=== PATIENT | male | born 1990 ===

== ENCOUNTER 2023-09-07 01:03 | Outpatient (CLI) | payer OTHER | END 2023-09-07 01:04 | disposition critical access hospital (66) | LOC: EMS 01:03 | DX: R06.00 Dyspnea, unspecified (principal); R46.89 Other symptoms and signs involving appearance and behavior; R45.1 Restlessness and agitation; Z78.1 Physical restraint status | CPT/HCPCS: A0425; A0427 ==

== ENCOUNTER 2023-09-07 01:28 | Emergency (ER) | payer OTHER ==
[2023-09-07] MEDS ORDERED: SODIUM CHLORIDE 0.9% 1,000 ML IV STA (01:34)
[2023-09-07 01:48] LABS: BASOPHILS % (AUTO) 0.3 %; EOSINOPHILS % (AUTO) 0.1 %; HCT - HEMATOCRIT 42.7 % (42.0-52.0); HGB - HEMOGLOBIN 14.6 g/dL (14.0-18.0); LYMPHOCYTES # (AUTO) 0.9 10^3/uL (1.5-3.5); LYMPHOCYTES % (AUTO) 8.5 %; MEAN CORPUSCULAR HEMOGLOBIN 31.5 pg (27.0-31.0); MEAN CORPUSCULAR HGB CONC 34.2 g/dL (32.0-36.0); MEAN CORPUSCULAR VOLUME 92.2 fL (80.0-94.0); MEAN PLATELET VOLUME 9.4 fL (7.4-11.4); MONOCYTES # (AUTO) 0.5 10^3/uL (0.0-1.0); MONOCYTES % (AUTO) 4.8 %; NEUTROPHILS # (AUTO) 9.1 10^3/uL (1.5-6.6); PLT - PLATELET COUNT 450 10^3/uL (130-450); RED BLOOD COUNT 4.63 10^6/uL (4.70-6.10); RED CELL DISTRIBUTION WIDTH 12.2 % (12.0-15.0); WHITE BLOOD COUNT 10.6 x10^3/uL (4.8-10.8)
[2023-09-07 02:27] LABS: ALBUMIN 4.7 g/dL (3.2-5.5); ALBUMIN/GLOBULIN RATIO 2.1 (1.0-2.2); ALKALINE PHOSPHATASE 57 IU/L (42-121); ALT ALANINE AMINOTRANSFERASE 16 IU/L (10-60); AST ASPARTATE AMINOTRANSFERASE 18 IU/L (10-42); BILIRUBIN,TOTAL 0.8 mg/dL (0.2-1.0); BUN - BLOOD UREA NITROGEN 12 mg/dL (6-20); CALCIUM 9.6 mg/dL (8.5-10.3); CARBON DIOXIDE - CO2 22 mmol/L (21-32); CHLORIDE 101 mmol/L (101-111); CK- CREATINE KINASE 181 IU/L (30-223); ETOH - ETHANOL < 10.0 mg/dL; GFR - MDRD 86 (>89); GLUCOSE 178 mg/dL (74-104); LIPASE 23 U/L (11-82); MAGNESIUM 1.9 mg/dL (1.7-2.3); POTASSIUM 3.3 mmol/L (3.5-4.5); SODIUM 136 mmol/L (135-145); TOTAL PROTEIN 6.9 g/dL (6.4-8.9)
[2023-09-07 02:49] LABS: ACETAMINOPHEN < 0 ug/mL (10-30); SALICYLATE < 1.5 mg/dL
--- NOTE | 2023-09-07 03:34 | ED Physician Documentation ---
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 He was reportedly found running in the hallway by staff. Patient was quite combative and required 5 mg of Versed and four-point restraints by EMS in order for transport. EMS reported that staff at [facility] stated that the patient has access to medications but they are unsure of what they he could have taken. There was one report of possibly taking ketamine. Patient is able to answer his name but not able to answer any other questions. Review of Systems Unable to obtain: AMS PD PAST MEDICAL HISTORY - Present Medications Home Medications: Ambulatory Orders Medication Instructions Recorded Confirmed No Known Home Medications 09/07/23 09/07/23 - Allergies Allergies/Adverse Reactions: Allergies Allergy/AdvReac Type Severity Reaction Status Date / Time Unable to Assess Allergy Verified 09/07/23 01:41 - Social History Does the pt smoke?: No Smoking Status: Never smoker PD ED PE NORMAL - General General: No acute distress, Well developed/nourished. No: Alert and oriented X 3 (Alert and oriented to person) - HEENT HEENT: Atraumatic, PERRL, EOMI, Moist mucous membranes, Pharynx benign - Neck Neck: Supple, no meningeal sign - Cardiac Cardiac: RRR, Strong equal pulses, Other (Tachycardic, regular rhythm) - Respiratory Respiratory: No respiratory distress, Clear bilaterally - Abdomen Abdomen: Soft, Non tender - Derm Derm: Warm and dry - Extremities Extremities: No deformity - Neuro Neuro: No motor deficit, Normal speech. No: Alert and oriented X 3 (Alert and oriented x1) Results - Vitals Vitals: Vital Signs - 24 hr 09/07/23 09/07/23 09/07/23 01:38 02:58 03:00 Temperature 36.9 C Heart Rate 126 H 95 97 Respiratory 14 16 16 Rate Blood Pressure 120/77 124/79 123/78 O2 Saturation 92 99 98 09/07/23 09/07/23 09/07/23 03:30 04:00 04:30 Temperature Heart Rate 103 H 90 82 Respiratory 20 18 16 Rate Blood Pressure 131/88 H 119/83 H 93/53 L O2 Saturation 98 99 99 09/07/23 09/07/23 09/07/23 07:31 08:00 08:35 Temperature 37.1 C Heart Rate 87 81 78 Respiratory 20 17 12 Rate Blood Pressure 113/83 H 112/77 109/71 O2 Saturation 100 99 100 Oxygen O2 Source Room air - EKG (time done) 0151 EKG releavant findings:: EKG personally interpreted by author of this note. Relevant findings are: Rate 118, sinus tachycardia, no STEMI - Labs Labs: Laboratory Tests 09/07/23 09/07/23 09/07/23 01:43 01:43 03:53 WBC 10.6 RBC 4.63 L Hgb 14.6 Hct 42.7 MCV 92.2 MCH 31.5 H MCHC 34.2 RDW 12.2 Plt Count 450 MPV 9.4 Neut # (Auto) 9.1 H Lymph # (Auto) 0.9 L [place] # (Auto) 0.5 Eos # (Auto) 0.0 Baso # (Auto) 0.0 Absolute Nucleated RBC 0.00 Nucleated RBC % 0.0 Sodium 136 Potassium 3.3 L Chloride 101 Carbon Dioxide 22 Anion Gap 13.0 BUN 12 Creatinine 1.0 Estimated GFR (MDRD) 86 L Glucose 178 H Calcium 9.6 Magnesium 1.9 Total Bilirubin 0.8 AST 18 ALT 16 Alkaline Phosphatase 57 Total Creatine Kinase 181 Total Protein 6.9 Albumin 4.7 Globulin 2.2 Albumin/Globulin Ratio 2.1 Lipase 23 TSH 1.20 Urine Color YELLOW Urine Clarity CLEAR Urine pH 6.0 Ur Specific [place] 1.025 Urine Protein 30 H Urine Glucose (UA) NEGATIVE Urine Ketones 15 H Urine Occult Blood NEGATIVE Urine Nitrite NEGATIVE Urine Bilirubin NEGATIVE Urine Urobilinogen 0.2 (NORMAL) Ur Leukocyte Esterase NEGATIVE Urine RBC 0-5 Urine WBC 0-3 Ur Squamous Epith Cells RARE Squamous Urine Bacteria None Seen Urine Mucus Few Strands Ur Microscopic Review INDICATED Urine Culture Comments NOT INDICATED Salicylates < 1.5 Urine Opiates Screen NEGATIVE Ur Oxycodone Screen NEGATIVE Urine Methadone Screen NEGATIVE Ur Propoxyphene Screen NEGATIVE Acetaminophen < 0 L Ur Barbiturates Screen NEGATIVE Ur Tricyclics Screen NEGATIVE Ur Phencyclidine Scrn NEGATIVE Ur Amphetamine Screen NEGATIVE U Methamphetamines Scrn NEGATIVE U Benzodiazepines Scrn NEGATIVE Urine Cocaine Screen NEGATIVE U Cannabinoids Screen NEGATIVE Ethyl Alcohol < 10.0 PD Medical Decision Making - ED course Complexity details: reviewed results, re-evaluated patient, d/w patient ED course: Pt brought in after found screaming and running around his place of work, appeared to be under the influence. Required chemical and physical restraints from EMS for transport. Has been cooperative here. Labs reviewed. No significant findings. Pts mentation quickly improved and pt opened up about recent stresses and ketamine abuse. Pt has been medically cleared. Telepysch consult requested. Pt signed out to oncoming provider at shift change. [id number] - Patient is much more with it now. He states that he has been under a lot of stress at home and with his living situation. He also reports that he has been working a lot and having trouble with sleeping. He has been using ketamine which is not prescribed to him to help with coping. He denies that he currently feels suicidal but states he has in the past. He has never been hospitalized for mental health reasons. Plan to obtain a urine sample and then will request telepsychiatry consult. Patient has been calm and cooperative. He is ambulatory. Departure - Departure Clinical Impression: Substance abuse Condition: Stable Forms: PCP List
[2023-09-07 03:59] LABS: MUDS CUTOFF CONCENTRATIONS CUTOFF CONC BELOW:
[2023-09-07 04:01] LABS: BILIRUBIN,URINE NEGATIVE (NEGATIVE); GLUCOSE, URINE (UA) NEGATIVE (NEGATIVE); KETONES,URINE (UA) 15 mg/dL (NEGATIVE); LEUKOCYTE ESTERASE, URINE NEGATIVE (NEGATIVE); NITRITE,URINE NEGATIVE (NEGATIVE); OCCULT BLOOD,URINE NEGATIVE (NEGATIVE); PROTEIN,URINE 30 mg/dL (NEGATIVE); UROBILINOGEN,URINE 0.2 (NORMAL) E.U./dL (NORMAL)
[2023-09-07 04:02] LABS: CLARITY,URINE CLEAR (CLEAR)
[2023-09-07 04:07] LABS: BACTERIA,URINE None Seen /HPF (None Seen); MUCUS,URINE Few Strands; RBC,URINE 0-5 /HPF (0-5); SQUAMOUS EPITHELIAL CELL,UR RARE Squamous (<= Few); WBC,URINE 0-3 /HPF (0-3)
[2023-09-07 04:10] LABS: AMPHETAMINE SCREEN,URINE NEGATIVE (NEGATIVE); BARBITURATE SCREEN,UR NEGATIVE (NEGATIVE); BENZODIAZEPINES SCREEN, URINE NEGATIVE (NEGATIVE); COCAINE SCREEN URINE NEGATIVE (NEGATIVE); METHADONE SCREEN, URINE NEGATIVE (NEGATIVE); METHAMPHETAMINES SCREEN, URINE NEGATIVE (NEGATIVE); OPIATE SCREEN, URINE NEGATIVE (NEGATIVE); OXYCODONE SCREEN, URINE NEGATIVE (NEGATIVE); PROPOXYPHENE SCREEN, URINE NEGATIVE (NEGATIVE); THC CANNABINOID SCREEN, URINE NEGATIVE (NEGATIVE); TRICYCLIC ANTIDEPRESSANT,URINE NEGATIVE (NEGATIVE)
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
[2023-09-07 10:11] VITALS: BP 141/86; O2SAT 99
--- NOTE | 2023-09-07 11:14 | ED Physician Documentation ---
ED Addendum - Addendum Addendum: 09/07/23 11:12 The patient had a telepsych consult. Refer to their report. Recommendations was for outpatient psychological support as well as substance abuse treatment. 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 He states he intends to go stay with his parents in [place] for a few days. He declines any inpatient detox treatment at this time. I did offer medication to help with his likely symptoms of anxiety and though he will not really have ketamine withdrawal per se he will have the anxiety that he has been using the ketamine to treat. He states he has also had troubles with sleep. He is awake alert and conversant at this time. He is answering questions appropriately. He denies any suicidal ideation. He does have a new primary care provider he is gotten in the last month or 2. He can follow-up with them. In the short-term we discussed treatment options and for his sleep and anxiety we can try some low-dose trazodone at night and for the anxiety Ativan 2-3 times daily if needed until able to follow-up with his primary care. I sent these prescriptions to his preferred pharmacy which is the [facility] in [place] on [facility] [address] [address] [facility]. The patient will be discharged home at this time. Disposition: Patient discharged home in stable condition Diagnoses: 1. Altered mental status Due to substance abuse 3. Anxiety and insomnia 09/07/23 11:14
== END 2023-09-07 11:48 | disposition home or self-care (01) ==
LOC: EDBD → ED 01:28
DX: F16.950 Hallucinogen use, unspecified with hallucinogen-induced psychotic disorder with delusions (principal); F19.10 Other psychoactive substance abuse, uncomplicated; F41.9 Anxiety disorder, unspecified; G47.00 Insomnia, unspecified
CPT/HCPCS: 36415; 80053; 80306; 80307; 80320; 80329; 81001; 82550; 83690; 83735; 84443; 85025; 90834; 93005; 96360; 99283; Q3014; 81003; 87086